=== PATIENT | female | born 1985 | race Caucasian/White ===

== ENCOUNTER 2020-10-22 08:42 | Emergency (ER) | payer SELFPAY ==
[~2020-10-22 08:42] MED LIST: AUGMENTIN 875-1 EACH PO; BACTRIM DS TAB1 EACH PO; BACTROBAN NASAL1 G1 TOP; CLINDAMYCIN HC300 MG PO; IBUPROFEN600 MG PO; KEFLEX CAP 500500 MG PO; LODINE CAP 300300 MG PO; NAPROSYN500 MG PO; NORCO 5-325 TA1 EACH PO; PENVEE K 500 M500 MG PO; TAMIFLU75 MG PO; Viscous lidocaine2% TOP; ZOFRAN ODT 4 MG4 MG PO
[2020-10-22] MEDS ORDERED: MEDROL DOSEPAK 24 MG PO (10:42)
[2020-10-22] MEDS ORDERED: PROAIR DIGIHAL90 MCG INH (10:42)
[2020-10-22] MEDS ORDERED: IBUPROFEN800 MG PO (10:42)
== END 2020-10-22 11:14 | disposition home or self-care (01) ==
LOC: ER1 08:42
DX: J06.9 Acute upper respiratory infection, unspecified (principal); Z20.822 Contact with and (suspected) exposure to COVID-19
CPT/HCPCS: 0240U; 71045; 87081; 87880; 94640; 94664; 99285

== ENCOUNTER 2021-12-27 06:10 | Emergency (ER) | payer BC ==
[~2021-12-27 06:10] MED LIST changes: +IBUPROFEN800 MG PO; +MEDROL DOSEPAK 24 MG PO; +PROAIR DIGIHAL90 MCG INH
[2021-12-27 07:26] LABS: RED BLOOD COUNT 4.52 M/UL (4.00-5.10); WHITE BLOOD COUNT 10.7 K/UL (4.5-11.0)
[2021-12-27 07:48] LABS: BUN/CREATININE RATIO 24 (0-10)
[2021-12-27] MEDS ORDERED: ONDANSETRON ODT4 MG PO (10:05)
[2021-12-29] MEDS ORDERED: COLACE100 MG PO (13:58)
[2021-12-29] MEDS ORDERED: HYDROCODON-ACE1 EAC4 PO (13:58)
== END 2021-12-27 10:20 | disposition home or self-care (01) ==
LOC: ER1 06:10
PROVIDERS: Nurse Practitioner
DX: K80.80 Other cholelithiasis without obstruction (principal); F17.210 Nicotine dependence, cigarettes, uncomplicated; Z90.710 Acquired absence of both cervix and uterus
CPT/HCPCS: 80053; 80076; 81001; 83605; 83690; 84702; 85025; 96374; 96375; 99284; J2270; J2405; Q9967

== ENCOUNTER → 2021-12-29 | Day surgery (SDC) | payer BC ==
[~2021-12-29] MED LIST changes: +COLACE100 MG PO; +HYDROCODON-ACE1 EAC4 PO; +ONDANSETRON ODT4 MG PO
== END | disposition home or self-care (01) ==
LOC: OR 10:53
DX: K80.10 Calculus of gallbladder with chronic cholecystitis without obstruction (principal)
CPT/HCPCS: 36415; 84703; J0690; J1100; J1170; J1885; J2001; J2250; J2405; J2704; J3010